=== PATIENT | male | born 1960 | race Caucasian/White ===

== ENCOUNTER 2016-11-18 06:19 | Day surgery (SDC) | payer MEDICARE ==
[~2016-11-18] VITALS: Ht 175.3 cm; Wt 88.5 kg
[~2016-11-18 06:19] MED LIST: ESCITALOPRAM OX10 MG PO; HYDROCO/APAP1 TA9 PO
[2016-11-18 08:36] VITALS: BP 126/81
== END 2016-11-18 08:38 | disposition home or self-care (01) ==
LOC: ORM 06:19
PROVIDERS: ATTEND Anesthesiology Pain Medicine
PROC: 3E0S33Z Introduction of Anti-inflammatory into Epidural Space, Percutaneous Approach (ICD-10-PCS; principal; 2016-11-18)
PROC: B01B1ZZ Fluoroscopy of Spinal Cord using Low Osmolar Contrast (ICD-10-PCS; 2016-11-18)
DX: M51.9 Unspecified thoracic, thoracolumbar and lumbosacral intervertebral disc disorder (principal); M51.17 Intervertebral disc disorders with radiculopathy, lumbosacral region; M54.41 Lumbago with sciatica, right side
CPT/HCPCS: Q9967

== ENCOUNTER 2016-12-02 06:13 | Day surgery (SDC) | payer MEDICARE ==
[~2016-12-02] VITALS: Ht 175.3 cm; Wt 86.2 kg
[2016-12-02 07:37] VITALS: BP 112/82
== END 2016-12-02 08:17 | disposition home or self-care (01) ==
LOC: ORM 06:13
PROVIDERS: ATTEND Anesthesiology Pain Medicine
PROC: 3E0R33Z Introduction of Anti-inflammatory into Spinal Canal, Percutaneous Approach (ICD-10-PCS; principal; 2016-12-02)
DX: M51.17 Intervertebral disc disorders with radiculopathy, lumbosacral region (principal); M54.41 Lumbago with sciatica, right side; M51.9 Unspecified thoracic, thoracolumbar and lumbosacral intervertebral disc disorder
CPT/HCPCS: Q9967

== ENCOUNTER 2017-01-13 06:54 | Day surgery (SDC) | payer MEDICARE ==
[~2017-01-13] VITALS: Ht 175.3 cm; Wt 77.1 kg
[2017-01-13 08:58] VITALS: BP 108/71
== END 2017-01-13 09:00 | disposition home or self-care (01) ==
LOC: ORM 06:54
PROVIDERS: ATTEND Anesthesiology Pain Medicine
DX: M51.17 Intervertebral disc disorders with radiculopathy, lumbosacral region (principal); M51.9 Unspecified thoracic, thoracolumbar and lumbosacral intervertebral disc disorder; M54.41 Lumbago with sciatica, right side; R00.0 Tachycardia, unspecified; R00.1 Bradycardia, unspecified; Z53.8 Procedure and treatment not carried out for other reasons
CPT/HCPCS: Q9967

== ENCOUNTER → 2018-06-06 | Outpatient (REF) | payer MEDICARE | END | disposition home or self-care (01) | LOC: CT 08:20 | PROVIDERS: ATTEND Internal Medicine | DX: R04.2 Hemoptysis (principal) ==